=== PATIENT | female | born 1960 | race Caucasian/White ===

== ENCOUNTER 2020-08-24 16:27 | Inpatient (IN) ==
[2020-08-24] MEDS ORDERED: IOPAMIDOL 100 ML BOTTLE IV ONE ×2 (16:28)
[2020-08-24] MEDS ORDERED: ONDANSETRON 4 MG/2 ML VIAL IV ONE (16:33)
[2020-08-24] MEDS ORDERED: 0.9 % SODIUM CHLORIDE 1,000 ML IV ONE (16:33)
[2020-08-24] MEDS ORDERED: 0.9 % SODIUM CHLORIDE 250 ML IV SCH (17:15)
[2020-08-24 17:33] LABS: Basophils # (Auto) 0.05 K/mcL (0.00-0.20); Basophils % (Auto) 0.4 % (0.0-2.0); Eosinophils # (Auto) 0.05 K/mcL (0.00-0.70); Eosinophils % (Auto) 0.4 % (0.0-7.0); Hematocrit 46.8 % (36.0-48.0); Hemoglobin 15.6 g/dL (12.0-15.0); Lymphocytes # (Auto) 1.58 K/mcL (1.50-4.80); Lymphocytes % (Auto) 12.3 % (15.0-49.0); Mean Cell Volume 89.5 fL (80.0-100.0); Mean Corpuscular HGB Conc 33.3 g/dL (31.0-36.0); Mean Platelet Volume 10.3 fL (7.4-10.4); Monocytes # (Auto) 0.86 K/mcL (0.10-0.90); Monocytes % (Auto) 6.7 % (1.0-12.0); Neutrophils % (Auto) 80.2 % (38.0-78.0); Platelet Count 331 K/mcL (140-440); RBC 5.23 M/mcL (4.00-5.20); Red Cell Distribution Width 14.7 % (11.5-14.5); WBC 12.9 K/mcL (4.5-11.0)
--- NOTE | 2020-08-24 17:34 | Emergency Department Note ---
GI Bleed HPI General Chief complaint: Rectal Bleed Stated complaint: blood in stool, abd cramping since last night. Time Seen by Provider: 08/24/20 16:33 Source: patient Mode of arrival: wheelchair Limitations: no limitations History of Present Illness HPI Narrative: Narrative: 60-year-old female presents to the emergency department complaining of blood in the stool abdominal cramping. Said all started last night. Says she does have history of hemorrhoids but this does not feel like it. Said there is bright red blood she had multiple episodes where she felt she had have a bowel movement and then bright red blood per rectum filled the toilet. Says not been really been was stool she has no melena she has mild nausea but no vomiting. He said that her abdomen cramps and then she has these bowel movements. Never had any abdominal surgery as far she knows. Denies any fevers, chills, nausea, vomiting. Otherwise no other complaints. She is not currently having any pain at this time. Related Data Allergies Allergy/AdvReac Type Severity Reaction Status Date / Time Penicillins Allergy Intermediate Hives Verified 08/24/20 16:31 Review of Systems ROS ROS Narrative: Narrative: All systems ED: reviewed and negative except as stated. PFSH Narrative Patient History Narrative: Narrative: Medical/Surgical/Family History All Active Problems (Updated 08/24/20 @ 20:02 by Huan Shah DO) Acute ischemic colitis (Acute) Bright red rectal bleeding (Acute) Social History Smoking Status: Current every day smoker Exam Narrative Narrative: Narrative: Vital signs noted General: Awake. Alert. No distress. Skin: Warm. Dry. No rash. HEENT: NCAT. PERRL. EOMI. No conjunctivitis. No nystagmus. No pharyngitis. Membranes moist. No otitis. No rhinitis. Neck: No PTP. Good ROM. No meningeal signs. No stridor. No thyromegaly. No JVD. Cardiovascular: RRR. No murmur. No rubs. No gallops. Respiratory: No respiratory distress. Breath sounds equal. Lungs clear. Gastrointestinal: Abdomen soft. No tenderness. No distention. Normal bowel sounds. No palpable organomegaly or masses. No gross masses or hemorrhoids felt on digital rectal exam. Hemoccult positive Back: No deformity. No CVAT. Musculoskeletal: No tenderness. No swelling. No erythema. No edema. Good peripheral pulses x 4 Lymphatic: No palpable adenopathy. Neurological: No focal neurological deficits observed. CN 2-12 are intact. Good FTN. No pronator drift. General Limitations: no limitations Course Vital Signs Vital signs: Vital Signs Temperature 98.1 F 08/24/20 16:28 Pulse Rate 99 H 08/24/20 16:28 Respiratory Rate 18 08/24/20 16:28 Blood Pressure 126/81 08/24/20 16:28 Pulse Oximetry (%) 95 08/24/20 16:28 Temperature 98.1 F 08/24/20 16:28 Pulse Rate 91 H 08/24/20 19:31 Respiratory Rate 18 08/24/20 19:31 Blood Pressure 146/66 08/24/20 19:31 Pulse Oximetry (%) 89 L 08/24/20 19:31 MDM MDM Narrative Medical decision making narrative: Narrative: We will do a GI bleed work-up. This does seem to be possibly lower GI bleed based on the bright red blood. Will go ahead and get a CT of the abdomen and pelvis with IV and oral contrast. We will also get basic labs including CBC BMP stool guaiac was positive. Will do type and screen pending in case patient does need transfusion. Disposition will be pending results. Labs otherwise came back normal hemoglobin was stable. Type and screen was done which does have antibiotics will take it. Chemistry otherwise was normal. CT scan did show ischemic colitis complete blockage and occlusion of the SAMINA. Did speak with Dr. Hayden the on-call surgeon he like to admit the patient to his service under observation. Patient was updated that plan. Patient is admitted for observation on [facility] to Dr. Hayden. Lab Data Result diagrams: 08/24/20 16:55 08/24/20 16:55 Labs: Lab Results 08/24/20 08/24/20 08/24/20 Range/Units 16:55 16:55 16:55 WBC 12.9 H (4.5-11.0) K/mcL RBC 5.23 H (4.00-5.20) M/mcL Hgb 15.6 H (12.0-15.0) g/dL Hct 46.8 (36.0-48.0) % MCV 89.5 (80.0-100.0) fL MCH 29.8 (26.0-34.0) pg MCHC 33.3 (31.0-36.0) g/dL RDW 14.7 H (11.5-14.5) % Plt Count 331 (140-440) K/mcL MPV 10.3 (7.4-10.4) fL Neut % (Auto) 80.2 H (38.0-78.0) % Lymph % (Auto) 12.3 L (15.0-49.0) % Island % (Auto) 6.7 (1.0-12.0) % Eos % (Auto) 0.4 (0.0-7.0) % Baso % (Auto) 0.4 (0.0-2.0) % Lymph # (Auto) 1.58 (1.50-4.80) K/mcL Island # (Auto) 0.86 (0.10-0.90) K/mcL Eos # (Auto) 0.05 (0.00-0.70) K/mcL Baso # (Auto) 0.05 (0.00-0.20) K/mcL POC PT 11.0 L (11.9-14.5) sec POC INR 0.9 (0.8-1.2) Sodium 139 (133-145) mmol/L Potassium 3.9 (3.3-5.1) mmol/L Chloride 103 (96-108) mmol/L Carbon Dioxide 23 (22-30) mmol/L Anion Gap 13.0 (8.0-16.0) BUN 14 (8-23) mg/dL Creatinine 0.8 (0.6-1.1) mg/dL GFR Calculation 79 Glucose 105 (70-105) mg/dL Calcium 9.0 (8.6-10.4) mg/dL Total Bilirubin 0.6 (0.1-1.0) mg/dL AST 26 (<32) U/L ALT 23 (<40) U/L Alkaline Phosphatase 79 (39-117) U/L Total Protein 6.5 (5.9-8.4) gm/dL Albumin 4.0 (3.2-5.2) gm/dL Globulin 2.5 (2.2-3.7) gm/dL Albumin/Globulin Ratio 1.6 (1.0-2.3) Abs Neutrophil Control 10.35 H (1.80-8.00) K/mcL Discharge Plan Patient/Caregiver Discharge Instructions Pt seen by [employer]ER/PA only: No Clinical Impression: Acute ischemic colitis, Bright red rectal bleeding Patient Disposition: Xfer As Outpt/Obs ([facility]) Condition: Fair
[2020-08-24 17:46] LABS: POC INR 0.9 (0.8-1.2)
[2020-08-24 17:54] LABS: ALT/SGPT 23 U/L (<40); AST/SGOT 26 U/L (<32); Albumin/Globulin Ratio 1.6 (1.0-2.3); Alkaline Phosphatase 79 U/L (39-117); Bilirubin,Total 0.6 mg/dL (0.1-1.0); Blood Urea Nitrogen 14 mg/dL (8-23); Carbon Dioxide 23 mmol/L (22-30); Chloride 103 mmol/L (96-108); Globulin 2.5 gm/dL (2.2-3.7); Glomerular Filtration Rate 79; Glucose 105 mg/dL (70-105)
[2020-08-24] MEDS ORDERED: morphine 4 MG/ML VIAL IV ONE (18:47)
--- NOTE | 2020-08-24 19:38 | Cat Scan Report ---
CLINICAL INFORMATION: GI bleed COMPARISON: None. TECHNIQUE: Following enteric contrast, 80 cc of Isovue-370 were injected intravenously, and 20 and 60 seconds later, 0.625 mm helical slices were obtained from the mid heart through the subtrochanteric regions. Following reconstruction, 2.5 mm sagittal, coronal and axial reformatted images were processed and reviewed at bone, lung and soft tissue windows. Five minutes later, 0.625 mm helical slices were obtained from the mid heart through the kidneys and viewed at soft tissue windows.The exam was performed using radiation dose optimization techniques including, but not limited to, automated exposure control, adjustment of the mA and/or kV according to patient size and use of iterative reconstruction technique. FINDINGS: Lung bases show only scattered scarring and/or atelectasis. No effusions. The visualized heart is grossly normal. Abdominal images show minimal fatty change within the liver, but no focal lesions. The gallbladder and bile ducts, both kidneys, adrenal glands, spleen and pancreas are normal in size, configuration and attenuation without focal lesion. The aorta is riddled with very heavy calcific plaque. This has resulted in a greater than 50% stenosis of the distal infrarenal abdominal aorta. There is a 50% stenosis of the celiac artery origin. The SMA is widely patent. The SAMINA is occluded at its origin with collateral reconstitution of the mid SAMINA. Both renal arteries are patent. Extremely heavy fibrofatty calcific plaque present within the common, internal /external iliac and common femoral arteries. The calcification precludes accurate stenosis grading but is estimated to be greater 50% in the right common iliac and both external iliac arteries. Please correlate with history of claudication. Pelvic images show urinary bladder is normal. Hysterectomy / oophorectomy changes appreciated. Moderate ascites is seen in the deep true pelvis, perihepatic and perisplenic spaces. There is moderate concentric wall thickening, mural edema and mucosal enhancement of the descending and sigmoid colon. The remaining large bowel, small bowel and stomach are unremarkable. Appendix not identified, but no inflammation is seen in the region of the appendix. Bone windows grade 1 L4-5 spondylolisthesis, broad disc protrusion and facet hypertrophy which result in which result in severe central canal and moderate bilateral IV foraminal and lateral recess narrowing. There is impingement of the exiting L4 and descending L5 nerve roots. IMPRESSION: 1. Moderate concentric wall thickening, mucosal enhancement and mural edema in the descending and sigmoid colon. This likely indicates ischemic colitis. The SAMINA is occluded at its origin and reconstituted by collaterals. Perfusion pressures in the left colic and sigmoid branches off the SAMINA would be reduced resulting in increased risk for ischemic colitis. Infectious or inflammatory colitis are possible, but less, likely. Suggest GI referral for colonoscopy 2. Less than 50% stenosis - celiac artery origin. 3. Moderate ileus 4. Moderate ascites. 5. Heavy calcific plaque in the infrarenal abdominal aorta resulting in a greater than 50% stenosis near the aortic bifurcation. There is also extraordinarily heavy calcific plaque in both common external and internal iliac and common femoral arteries. There are stenoses greater than 50% right common iliac and both external iliac arteries. Please correlate with history of claudication or rest pain in the lower extremities. 6. L4-5 spondylolisthesis and facet arthropathy with disc protrusion resulting in severe central canal and moderate bilateral IV foraminal/ lateral recess narrowing impinging the exiting L4 and descending L5 nerve roots. Patient is also at risk for neurogenic claudication. Interpreted and Authenticated by: Jerrod Hayes 08/24/20
[2020-08-24] MEDS ORDERED: PROMETHAZINE 25 MG/ML VIAL IV PRN (20:13)
--- NOTE | 2020-08-24 20:27 | General Surg History&Physical ---
HPI History of Present Illness Patient information: Note initiated : 08/24/20 at 8:25 pm Service Date, if different from initiated Date: [] Patient: Polina Up a 60 y/o F admitted on for blood in stool, abd cramping since last night.. Chief Complaint: [] Chief complaint: abdominal pain and rectal bleeding History of present illness: Ms. Up is a 60 year old F admitted with complaints of crampy abdominal pain and rectal bleeding. The patient states that one night prior to admission she developed crampy abdominal pain. This was followed by loose stools initially and then she had multiple episodes of rectal bleeding. The cramps initially improved but then became worse. Because of increasing discomfort she is seen in the emergency room. She has tenderness in her abdomen and CT evidence of segmental colitis thought to represent ischemic colitis. She also has evidence of vascular disease involving her mesenteric vessels and her peripheral vessels. Patient is a chronic smoker. She is admitted and will be observed. Usually segmental colitis is limited. Constitutional Constitutional: Present anorexia, fatigue, malaise, weakness and weight loss EENT Eyes: Absent blurry vision Ears: Absent decreased hearing Nose, mouth and throat: Absent abnormal hearing, dysphagia and hoarseness Cardiovascular Cardiovascular: Present claudication (bilateral thigh and calf claudication), dyspnea on exertion and palpatations; Absent chest pain Respiratory Respiratory: Present cough and dyspnea on exertion Gastrointestinal Gastrointestinal: Present abdominal pain, change in bowel habits, change in stool character, cramping, early satiety, hematochezia, loose stools and nausea Genitourinary Genitourinary: Absent urinary frequency and urinary urgency Musculoskeletal Musculoskeletal: Present arthralgias and deformity Neurological Neurological: Present dizziness, numbness and paresthesias Psychiatric Psychiatric: Present anxiety and depression Endocrine Endocrine: Absent palpitations Hematologic/Lymphatic Hematologic/Lymphatic: Absent easy bleeding, easy bruising and lymphadenopathy Allergic/Immunologic Allergic/Immunologic: Absent tongue swelling, throat swelling, uticaria, wheezing and lip swelling PFSH PFSH All Active Problems (Updated 08/25/20 @ 13:21 by Izzy Hayden MD) H/O hysterectomy for benign disease (Acute) Peripheral vascular disease of extremity with claudication (Acute) Rheumatoid arthritis (Acute) Acute ischemic colitis (Acute) Bright red rectal bleeding (Acute) Family History (Updated 08/25/20 @ 13:24 by Izzy Hayden MD) Father , heart disease at age 66 No problems noted. Social History smoking status: Current every day smoker MEDS/ALLERGIES Home Medications and Allergies Home Medications Medication Instructions Recorded Confirmed Type chlorthalidone 12.5 mg PO DAILY 08/25/20 08/25/20 History hydroxychloroquine 200 mg PO DAILY 08/25/20 08/25/20 History Allergies Allergy/AdvReac Type Severity Reaction Status Date / Time Penicillins Allergy Intermediate Hives Verified 08/24/20 16:31 Physical Examination Vital Signs Vital signs: Temp Pulse Resp BP Pulse Ox 98.1 F 92 H 14 112/93 90 08/24/20 16:28 08/24/20 20:00 08/24/20 20:00 08/24/20 20:00 08/24/20 20:00 General physical appearance General physical exam: no distress, cachectic and chronically ill Eyes Eye exam: PERRL and normal ocular movement ENT ENT exam: normal nares, normal mucosa, no hearing loss and no congestion Head Head exam IM: Present atraumatic, normal inspection and normocephalic Neck Neck exam: no masses, no bruits, trachea midline and no lymphadenopathy Cardiovascular Cardiovascular exam IM: Present normal rate and rhythm, RRR, +S1 and +S2; Absent gallop and JVD Cardiovascular: decreased peripheral pulses including femorals popliteals and peripheral pulses; good capillary refill bilaterally peripherally Respiratory Respiratory exam: normal expansion, normal respiratory effort, clear to percussion and clear to auscultation Abdomen Abdomen: Present tender (mild tenderness left lateral abdomen and left lower quadrant) Integumentary Integumentary: Present no rash and no growths Neurologic Neurologic: Present normal coordination and normal sensation Musculoskeletal Musculoskeletal: Present normal gait, normal posture and other (thickening of joints of both hands with some ulnar deviation) Psychiatric Psychiatric: Present oriented to time, oriented to person, oriented to place, speech is normal, memory intact and other Results Labs Result diagrams: 08/25/20 05:15 08/25/20 05:15 Labs: Abnormal lab results 08/24/20 08/24/20 Range/Units 16:55 16:55 WBC 12.9 H (4.5-11.0) K/mcL RBC 5.23 H (4.00-5.20) M/mcL Hgb 15.6 H (12.0-15.0) g/dL RDW 14.7 H (11.5-14.5) % Neut % (Auto) 80.2 H (38.0-78.0) % Lymph % (Auto) 12.3 L (15.0-49.0) % POC PT 11.0 L (11.9-14.5) sec Abs Neutrophil Control 10.35 H (1.80-8.00) K/mcL Diabetes panel 08/24/20 Range/Units 16:55 Sodium 139 (133-145) mmol/L Potassium 3.9 (3.3-5.1) mmol/L Chloride 103 (96-108) mmol/L Carbon Dioxide 23 (22-30) mmol/L BUN 14 (8-23) mg/dL Creatinine 0.8 (0.6-1.1) mg/dL Glucose 105 (70-105) mg/dL Calcium 9.0 (8.6-10.4) mg/dL AST 26 (<32) U/L ALT 23 (<40) U/L Alkaline Phosphatase 79 (39-117) U/L Total Protein 6.5 (5.9-8.4) gm/dL Albumin 4.0 (3.2-5.2) gm/dL Calcium panel 08/24/20 Range/Units 16:55 Calcium 9.0 (8.6-10.4) mg/dL Albumin 4.0 (3.2-5.2) gm/dL Pituitary panel 08/24/20 Range/Units 16:55 Sodium 139 (133-145) mmol/L Potassium 3.9 (3.3-5.1) mmol/L Chloride 103 (96-108) mmol/L Carbon Dioxide 23 (22-30) mmol/L BUN 14 (8-23) mg/dL Creatinine 0.8 (0.6-1.1) mg/dL Glucose 105 (70-105) mg/dL Calcium 9.0 (8.6-10.4) mg/dL Adrenal panel 08/24/20 Range/Units 16:55 Sodium 139 (133-145) mmol/L Potassium 3.9 (3.3-5.1) mmol/L Chloride 103 (96-108) mmol/L Carbon Dioxide 23 (22-30) mmol/L BUN 14 (8-23) mg/dL Creatinine 0.8 (0.6-1.1) mg/dL Glucose 105 (70-105) mg/dL Calcium 9.0 (8.6-10.4) mg/dL Total Bilirubin 0.6 (0.1-1.0) mg/dL AST 26 (<32) U/L ALT 23 (<40) U/L Alkaline Phosphatase 79 (39-117) U/L Total Protein 6.5 (5.9-8.4) gm/dL Albumin 4.0 (3.2-5.2) gm/dL All other labs normal. A/P Assessment and plan (1) Acute ischemic colitis: Status: Acute (2) Peripheral vascular disease of extremity with claudication: Status: Acute (3) Rheumatoid arthritis: Status: Acute Narrative A/P Narrative: monitor hgb npo oral budesonide hydrate Time Spent With Patient Time: Total time spent is greater than 50% in coordination of care (as documented) at patient's floor/unit and/or counseling patient:
[2020-08-24] MEDS ORDERED: LEVOFLOXACIN 500 MG/100 ML BAG IV ONE (21:22)
[2020-08-24] MEDS: 0.9 % SODIUM CHLORIDE 1,000 ML IV SCH (21:23)
[2020-08-24] MEDS: LEVOFLOXACIN 500 MG/100 ML BAG IV SCH ×2 (21:27→22:00)
[2020-08-24] MEDS: 0.9 % SODIUM CHLORIDE 10 ML SYRINGE IV SCH (21:32)
[2020-08-24] MEDS: DOCUSATE SODIUM 100 MG CAPSULE PO SCH (22:00)
[2020-08-24] MEDS: NICOTINE 21 MG PATCH TOPICAL SCH (22:01)
[2020-08-24] MEDS: SENNOSIDES 1 TABLET PO SCH (22:01)
[2020-08-24] MEDS: HYDROmorphone 0.5 MG/0.5 ML SYRINGE IV PRN (22:13)
[2020-08-24] MEDS: metroNIDAZOLE 500 MG/100 ML BAG IV SCH (23:04)
[2020-08-25] MEDS: HYDROmorphone 0.5 MG/0.5 ML SYRINGE IV PRN ×5 (00:14→21:17)
[2020-08-25] MEDS: metroNIDAZOLE 500 MG/100 ML BAG IV SCH ×3 (05:31→17:49)
[2020-08-25] MEDS: 0.9 % SODIUM CHLORIDE 10 ML SYRINGE IV SCH ×3 (05:47→21:18)
[2020-08-25 06:21] LABS: Basophils # (Auto) 0.04 K/mcL (0.00-0.20); Basophils % (Auto) 0.3 % (0.0-2.0); Eosinophils # (Auto) 0.07 K/mcL (0.00-0.70); Eosinophils % (Auto) 0.6 % (0.0-7.0); Hematocrit 38.2 % (36.0-48.0); Hemoglobin 12.4 g/dL (12.0-15.0); Lymphocytes # (Auto) 1.41 K/mcL (1.50-4.80); Mean Cell Volume 93.4 fL (80.0-100.0); Mean Corpuscular HGB Conc 32.5 g/dL (31.0-36.0); Mean Platelet Volume 10.4 fL (7.4-10.4); Monocytes # (Auto) 0.95 K/mcL (0.10-0.90); Monocytes % (Auto) 8.1 % (1.0-12.0); Platelet Count 251 K/mcL (140-440); RBC 4.09 M/mcL (4.00-5.20); Red Cell Distribution Width 15.3 % (11.5-14.5); WBC 11.8 K/mcL (4.5-11.0)
[2020-08-25 06:48] LABS: ALT/SGPT 17 U/L (<40); AST/SGOT 18 U/L (<32); Albumin/Globulin Ratio 1.5 (1.0-2.3); Alkaline Phosphatase 58 U/L (39-117); Bilirubin,Direct < 0.2 mg/dL (<0.3); Bilirubin,Total 0.6 mg/dL (0.1-1.0); Blood Urea Nitrogen 10 mg/dL (8-23); Calcium 7.8 mg/dL (8.6-10.4); Carbon Dioxide 22 mmol/L (22-30); Chloride 103 mmol/L (96-108); Glomerular Filtration Rate 93; Glucose 109 mg/dL (70-105); Lactate Dehydrogenase 209 U/L (135-225); Phosphorous 3.4 mg/dL (2.5-4.5); Triglycerides 73 mg/dL (<150)
[2020-08-25] MEDS: 0.9 % SODIUM CHLORIDE 1,000 ML IV SCH ×3 (07:08→21:49)
[2020-08-25] MEDS: ONDANSETRON 4 MG/2 ML VIAL IV PRN ×2 (07:08→21:17)
--- NOTE | 2020-08-25 08:52 | XRay Report ---
HISTORY: Colitis, blood in stool, abdominal cramping Findings: air is present in nondilated large and small intestine. The distal descending and proximal sigmoid colon are decompressed. These are the segments which appeared inflamed on yesterday's CT scan. No free intra-abdominal air is present. There is no apparent soft tissue mass. There is residual contrast in the kidneys and bladder following yesterday's CT scan. Emphysema and pulmonary fibrosis are present in both lung bases. A mild levoscoliotic curvature is present in the lumbar spine. Associated with this is degenerative disc disease and arthritis. A moderate amount of calcified plaque is present along the wall of the aorta and iliac arteries. FINDINGS: No evidence of bowel obstruction or perforation IMPRESSION: Interpreted and Authenticated by: Ronald Wyman 08/25/20
--- NOTE | 2020-08-25 08:56 | XRay Report ---
HISTORY: Preop for colitis FINDINGS: Patient has emphysema. There is pulmonary fibrosis in both lung bases. At the right apex, overlying the lateral aspect of right first rib there is a 6 mm nodular density. It is not clear whether this is a lung nodule or within rib. No other lung nodule is seen. There is no evidence of adenopathy. There is no evidence of pneumonia or congestive heart failure. The heart size, mediastinum and liliana are normal. IMPRESSION: COPD Possible small nodule at the right apex. This could be further evaluated by chest CT. Interpreted and Authenticated by: Ronald Wyman 08/25/20
[2020-08-25] MEDS: DOCUSATE SODIUM 100 MG CAPSULE PO SCH ×2 (11:41→21:18)
[2020-08-25] MEDS: LEVOFLOXACIN 500 MG/100 ML BAG IV SCH (11:45)
[2020-08-25] MEDS: NICOTINE 21 MG PATCH TOPICAL SCH (11:45)
[2020-08-25] MEDS: PANTOPRAZOLE 40 MG TABLET PO SCH (11:46)
[2020-08-25] MEDS: BUDESONIDE 3 MG CAP.XL.24H PO SCH (11:46)
--- NOTE | 2020-08-25 13:33 | General Surgery Progress Note ---
SUBJECTIVE Subjective Patient information: Note initiated : 08/25/20 at 1:28 pm Service Date, if different from initiated Date: [] Patient: Polina Up 60 y/o F admitted on 08/24/20 for blood in stool, abd cramping since last night.. Chief Complaint: [] Interval history: patient states that she feels better. She has not had any rectal bleeding since admission. She denies passing flatus or having abdominal pain. She denies nausea. Hemoglobin 12.4, white blood count 11.8, hematocrit 38.2, CRP 0.2, lactic acid 0.9 Constitutional Vitals: Vital Signs Temp Pulse Resp BP Pulse Ox 97.4 F 75 14 90/49 90 08/25/20 12:00 08/25/20 12:00 08/25/20 12:00 08/25/20 12:00 08/25/20 12:00 Period Temp Pulse Resp BP Sys/Becerra Pulse Ox Last 24 Hr 97.4 F-99.5 F 73-99 9-19 90-175/48-103 89-97 Intake and Output 08/24/20 08/25/20 08/25/20 21:59 05:59 13:59 Intake Total 3783 325 4717 Output Total 120 Balance 1090 430 980 Weight 94 lb 2 oz Intake & Output: Intake & Output 08/24/20 08/25/20 08/25/20 21:59 05:59 13:59 Intake Total 6264 968 3809 Output Total 120 Balance 1090 430 980 Weight 94 lb 2 oz Intake: IV 0063 460 3291 Sodium Chloride 0.9% 1,000 ml @ 1000 1000 125 mls/hr IV .Q8H [facility] Rx#: [id number] LEVAQUIN 500 mg In 100 ml @ 0 100 mls/hr IV .[facility] Rx#: [id number] Oral 90 230 Output: Emesis 120 Other: # Voids 1 1 1 # Unmeasured Emesis 1 Head Head exam: Present atraumatic, normal inspection and normocephalic Eye Eye exam: Present EOMI Pupils: Present PERRL ENT ENT exam: Present mucous membranes moist Neck Neck exam: Present full ROM; Absent lymphadenopathy and tenderness Respiratory Respiratory exam: Present normal respiratory exam and CTAB; Absent rhonchi, stridor and wheezes Cardiovascular Cardiovascular exam: Present normal rate and rhythm, RRR, +S1 and +S2; Absent JVD GI/Abdominal GI/Abdominal exam: Present normal bowel sounds, soft and tenderness (mild tenderness left lower quadrant); Absent mass Extremities Exam Extremities exam: Present full ROM, joint swelling (swelling of joints of both hands) and normal capillary refill; Absent neurovascular intact Additional comments: decreased peripheral pulses bilaterally Neurological Exam Neurological exam: Present alert, CN II-XII intact, normal gait and oriented X3 Psychiatric Psychiatric exam: Present normal affect and normal mood Skin Skin exam: Present normal color A/P Assessment and plan (1) Acute ischemic colitis: Status: Acute (2) Peripheral vascular disease of extremity with claudication: Status: Acute (3) Rheumatoid arthritis: Status: Acute Narrative A/P Narrative: advanced to clear liquids Continue IV hydration Continue budesonide Check abdominal x-rays in the morning Time Spent With Patient Time: Total time spent is greater than 50% in coordination of care (as documented) at patient's floor/unit and/or counseling patient:
[2020-08-25] MEDS: SENNOSIDES 1 TABLET PO SCH (21:18)
[2020-08-26] MEDS: metroNIDAZOLE 500 MG/100 ML BAG IV SCH ×3 (00:03→12:32)
[2020-08-26] MEDS: 0.9 % SODIUM CHLORIDE 1,000 ML IV SCH (04:14)
[2020-08-26] MEDS: 0.9 % SODIUM CHLORIDE 10 ML SYRINGE IV SCH ×2 (04:30→16:40)
[2020-08-26] MEDS ORDERED: oxyCODONE HCL 5 MG TABLET PO PRN (07:22)
[2020-08-26] MEDS ORDERED: BUTALB/ACETAMINOPHEN/CAFFEINE 1 TABLET PO PRN (07:23)
[2020-08-26] MEDS: PANTOPRAZOLE 40 MG TABLET PO SCH (07:25)
[2020-08-26] MEDS: LEVOFLOXACIN 500 MG/100 ML BAG IV SCH (09:05)
--- NOTE | 2020-08-26 09:12 | XRay Report ---
HISTORY: Follow-up colitis FINDINGS: Air is present throughout the abdomen in nondilated loops of large and small bowel and nondistended stomach. No air-fluid levels or free intra-abdominal air are present. The wall of the bowel does not appear to be mostly edematous or inflamed. No mass is seen. Vascular calcifications are present in the aorta and iliac arteries. There is mild pulmonary fibrosis in the lung bases. Comparison the prior exam from 08/25/20 shows relatively little change. IMPRESSION: No acute abnormality Interpreted and Authenticated by: Ronald Wyman 08/26/20
[2020-08-26] MEDS: NICOTINE 21 MG PATCH TOPICAL SCH (09:14)
[2020-08-26] MEDS: DOCUSATE SODIUM 100 MG CAPSULE PO SCH (09:15)
[2020-08-26] MEDS: BUDESONIDE 3 MG CAP.XL.24H PO SCH (09:15)
--- NOTE | 2020-08-26 14:39 | Discharge Summary ---
Discharge Provider Provider Patient information: Note initiated : 08/26/20 at 2:26 pm Service Date, if different from initiated Date: [] Patient: Polina Up 60 y/o F admitted on 08/24/20 for blood in stool, abd cramping since last night.. Chief Complaint: [] Date of admission: 08/24/20 20:29 Discharge date: 08/26/20 Admitting clinician: Izzy Hayden Attending physician on admission: Izzy Hayden Consults: 08/24/20 Consult to Physician [CONS] Stat Comment: Consulting Provider: Izzy Hayden Reason For Exam: Physician to Consult Attending physician on discharge: Izzy Hayden Discharging clinician: Izzy Hayden COURSE Hospital Course Hospital course: 60-year-old female admitted with crampy abdominal pain diarrhea and rectal bleeding. She was admitted with segmental colitis and has been observed. She had bowel rest with budesonide and Cipro and Flagyl. Her white count decreased to normal. She has not had any diarrhea or rectal bleeding since admission. She has passed flatus and has tolerated full liquid diet. She does not have any abdominal discomfort at this time. Patient is stable and is discharged home. She is visiting the area and will return home which is over 3 hours away. She will have follow-up with her primary care provider within the next 7-10 days. She also has significant peripheral vascular disease involving her mesenteric vessels as well as her peripheral vessels. She has significant thigh and calf claudication and will need to vascular workup. She is a chronic smoker and has been advised to discontinue smoking. Discharge diagnosis: segmental colitis, ischemic type Secondary discharge diagnosis: peripheral vascular disease Rheumatoid arthritis Reason for admission: abdominal pain with rectal bleeding Procedures: none Pertinent studies/significant findings: CT of abdomen and pelvis with contrast Complications: none Time spent discussing smoking cessation with patient: more than 10 minutes Time Spent with Patient Time attestation: Total time spent providing and/or coordinating discharge services: Time spent: Greater than 30 minutes Physical Examination Vital Signs Vital signs: Temp Pulse Resp BP Pulse Ox 97.4 F 68 12 109/56 97 08/26/20 11:29 08/26/20 11:29 08/26/20 11:29 08/26/20 11:29 08/26/20 11:29 General physical appearance General physical exam: no distress and no pain Eyes Eye exam: PERRL and normal ocular movement ENT ENT exam: normal mucosa and poor intermediate Head Head exam IM: Present atraumatic, normal inspection and normocephalic Neck Neck exam: no masses, no bruits, trachea midline, no lymphadenopathy and no venous distension Cardiovascular Cardiovascular exam IM: Present normal rate and rhythm and systolic murmur Intensity IM: 3/6 Respiratory Respiratory exam: normal respiratory effort, clear to percussion and clear to auscultation Abdomen Abdomen: Present soft, non tender and bowel sounds (normal bowel sounds) Integumentary Integumentary: Present no rash, no growths and no abnormal pigmentation Neurologic Neurologic: Present normal coordination and normal sensation Musculoskeletal Musculoskeletal: Present normal gait, normal posture and other (deformity of hands and fingers due to inflammatory arthritis) Psychiatric Psychiatric: Present oriented to time, oriented to person, oriented to place, speech is normal and memory intact Discharge Plan Patient/Caregiver Discharge Instructions Activity: increase activity as tolerated Diet: Regular Diet Prescriptions: New ciprofloxacin HCl [ciprofloxacin HCl] 500 MG tablet 500 mg PO BID Qty: 20 RF: 0 metronidazole 500 mg tablet 500 mg PO Q8H Qty: 30 RF: 0 budesonide 6 mg capsule, extended release 6 mg PO QDAY Qty: 7 RF: 0 oxycodone-acetaminophen [Endocet] 5-325 mg Tablet 1 tab PO Q4H PRN (Reason: Pain) Qty: 30 RF: 0 Continued chlorthalidone 25 mg tablet 12.5 mg PO DAILY RF: 0 hydroxychloroquine 200 mg tablet 200 mg PO DAILY RF: 0 Follow Up Plan Patient Disposition: Home, Self-Care Plan of Treatment: patient will follow with her primary care provider in 1-2 weeks. She has significant vascular disease involving her mesentery and her peripheral vessels. She should have a full vascular workup including nuclear stress test for cardiac disease. Prognosis: Fair Rehab Potential: Fair I certify that the patient requires SNF services: No Overall status at discharge: patient is progressing back to baseline Discharge Orders: Discharge Order (Routine); Ordered 08/26/20 Ordered By: Izzy Hayden Pending Pending Pending: Resuscitation Status Full Code Diet Full Liquid Diet Start TueAug 26 09 Budesonide (Entecort) 6 mg PO DAILY BIRDIE Last Admin: 08/26/20 09:15 Dose: 6 mg Documented by: Cosigned by: JAZMINE Admin: 08/25/20 11:46 Dose: 6 mg Documented by: DARCI Docusate Sodium (Colace) 100 mg PO BID BIRDIE Last Admin: 08/26/20 09:15 Dose: 100 mg Documented by: Cosigned by: JAZMINE Admin: 08/25/20 21:18 Dose: 100 mg Documented by: Admin: 08/25/20 11:41 Dose: Not Given Documented by: Admin: 08/24/20 22:00 Dose: 100 mg Documented by: JANIYA Hydromorphone HCl (Dilaudid) 0.5 mg IV Q2HP PRN; Protocol PRN Reason: Per Pain Protocol Last Admin: 08/25/20 21:17 Dose: 0.5 mg Documented by: Admin: 08/25/20 17:49 Dose: 0.5 mg Documented by: Admin: 08/25/20 09:49 Dose: 0.5 mg Documented by: Admin: 08/25/20 02:14 Dose: 0.5 mg Documented by: Admin: 08/25/20 00:14 Dose: 0.5 mg Documented by: Admin: 08/24/20 22:13 Dose: 0.5 mg Documented by: JANIYA Levofloxacin (Levaquin) 500 mg in 100 mls @ 100 mls/hr IV Q24H BIRDIE; Protocol Last Infusion: 08/26/20 10:05 Dose: 0 mls/hr Documented by: Admin: 08/26/20 09:05 Dose: 100 mls/hr Documented by: Infusion: 08/25/20 17:53 Dose: 100 mls/hr Documented by: Admin: 08/25/20 11:45 Dose: 100 mls/hr Documented by: Admin: 08/24/20 22:00 Dose: Not Given Documented by: JANIYA Metronidazole (Flagyl) 500 mg in 100 mls @ 100 mls/hr IV Q6H BIRDIE; Protocol Last Infusion: 08/26/20 13:32 Dose: 0 mls/hr Documented by: Admin: 08/26/20 12:32 Dose: 100 mls/hr Documented by: Infusion: 08/26/20 06:14 Dose: 0 mls/hr Documented by: Admin: 08/26/20 05:14 Dose: 100 mls/hr Documented by: Infusion: 08/26/20 04:29 Dose: 0 mls/hr Documented by: Admin: 08/26/20 00:03 Dose: 100 mls/hr Documented by: Infusion: 08/25/20 21:18 Dose: 0 mls/hr Documented by: Admin: 08/25/20 17:49 Dose: 100 mls/hr Documented by: Infusion: 08/25/20 14:30 Dose: 0 mls/hr Documented by: Admin: 08/25/20 13:00 Dose: 100 mls/hr Documented by: Infusion: 08/25/20 11:52 Dose: 0 mls/hr Documented by: Admin: 08/25/20 05:31 Dose: 100 mls/hr Documented by: Infusion: 08/25/20 00:12 Dose: 0 mls/hr Documented by: Admin: 08/24/20 23:04 Dose: 100 mls/hr Documented by: JANIYA Nicotine (Nicoderm) 21 mg TOPICAL DAILY@1000 BIRDIE Last Admin: 08/26/20 09:14 Dose: 21 mg Documented by: Cosigned by: JAZMINE Admin: 08/25/20 11:45 Dose: 21 mg Documented by: Admin: 08/24/20 22:01 Dose: 21 mg Documented by: JANIYA Ondansetron HCl (Zofran) 4 mg IV Q6HP PRN PRN Reason: Nausea And Vomiting Last Admin: 08/25/20 21:17 Dose: 4 mg Documented by: Admin: 08/25/20 07:08 Dose: 4 mg Documented by: DARCI Oxycodone HCl (Roxicodone) 5 - 10 mg PO Q4HP PRN; Protocol PRN Reason: Per Pain Protocol Last Admin: 08/26/20 07:51 Dose: 5 mg Documented by: Cosigned by: JAZMINE Pantoprazole Sodium (Protonix) 40 mg PO QAMAC [facility] Last Admin: 08/26/20 07:25 Dose: 40 mg Documented by: Cosigned by: JOMAR Admin: 08/25/20 11:46 Dose: 40 mg Documented by: DARCI Marr (Senokot) 2 tab PO HS [facility] Last Admin: 08/25/20 21:18 Dose: 2 tab Documented by: Admin: 08/24/20 22:01 Dose: 2 tab Documented by: JANIYA Sodium Chloride (Saline Flush) 10 ml IV Q8 [facility] Last Admin: 08/26/20 04:30 Dose: Not Given Documented by: Admin: 08/25/20 21:18 Dose: Not Given Documented by: Admin: 08/25/20 14:38 Dose: Not Given Documented by: Admin: 08/25/20 05:47 Dose: Not Given Documented by: Admin: 08/24/20 21:32 Dose: 10 ml Documented by: JANIYA Shift Summary 08/26/20 03:28 Shift Summary by Rachel Peace Pt is A&Ox4, able to make needs known. On 2 L o2 via [place] Running NS at 125 ml/hr on the left forearm. Up with SBA to bathroom. voids well. Does get dizzy at times when ambulating. On a clear liquid diet. No emesis this shift. No BM this shift. Received Dilaudid x1 and Zofran x1. Will update at bedside. Initialized on 08/26/20 03:28 - END OF NOTE
== END 2020-08-26 16:05 | disposition home or self-care (01) | DRG 386 ==
LOC: MEDSUR 16:27 → ED 16:27 → MEDSUR 20:29 → OBSVTOIN 20:29
PROVIDERS: ADMIT Family Medicine Adult Medicine; ATTEND Family Medicine Adult Medicine